=== PATIENT | male | born 1990 ===

== ENCOUNTER 2018-05-22 21:41 | Emergency (ER) | payer OTHER ==
[2018-05-22 21:49] VITALS: BP 156/88; PULSE 90; RESP 18; TEMP 98; O2SAT 99
[2018-05-22] MEDS ORDERED: Bacitracin 500 Units/gm Oint Foilpak UD TOP STA (21:53)
[2018-05-22] MEDS ORDERED: Tdap Vaccine 0.5 ml Vial (10-64 yrs) IM ONE ×2 (21:53→21:59)
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
== END 2018-05-22 23:20 | disposition home or self-care (01) ==
LOC: H.ER 21:41
DX: S50.312A Abrasion of left elbow, initial encounter (principal)

== ENCOUNTER 2019-01-21 19:15 | Emergency (ER) | payer OTHER ==
[2019-01-21 19:40] VITALS: TEMP 98.2
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
[2019-01-21 20:36] LABS: ALB/GLOB RATIO 1.5 (1.0-2.1); ALBUMIN 4.8 g/dL (3.5-5.0); ALT/SGPT 55 U/L (21-72); AST/SGOT 49 U/L (17-59); BLOOD UREA NITROGEN 20 mg/dl (9-20); CALCIUM 9.5 mg/dL (8.4-10.2); GFR NON-AFRICAN AMERICAN > 60
[2019-01-21 21:31] VITALS: BP 122/75; PULSE 72; RESP 15
[2019-01-21 22:56] VITALS: O2SAT 99
[2019-01-22 12:17] LABS: HEPATITIS B SURFACE AG Negative (NEGATIVE)
[2019-01-22 12:23] LABS: HEPATITIS A IGM NEGATIVE (NEGATIVE); HEPATITIS B CORE AB NEGATIVE (NEGATIVE)
[2019-01-22 12:35] LABS: HEPATITIS C ANTIBODY NEGATIVE (NEGATIVE)
== END 2019-01-21 21:31 | disposition home or self-care (01) ==
LOC: H.ER 19:15
DX: Z77.21 Contact with and (suspected) exposure to potentially hazardous body fluids (principal); Y99.0 Civilian activity done for income or pay